=== PATIENT | male | born 1970 | race Caucasian/White ===

== ENCOUNTER → 2017-10-23 10:45 | Outpatient (REF) | payer BC, SELFPAY ==
[2017-10-23 12:44] LABS: Anion Gap 8.9 mmol/L (3-11); BUN 15 mg/dL (7-18); CO2 28.1 mmol/L (21.0-32.0); CREATININE 0.97 mg/dL (0.70-1.30); Chloride 103 mmol/L (98-107); Cholesterol 209 mg/dL (50-200); Glucose 114 mg/dL (70-100); HDL Cholesterol 48 mg/dL (40-60); LDL CHOLESTEROL 145 mg/dL (<100); Potassium 3.6 mmol/L (3.5-5.1); Sodium 140 mmol/L (136-145); Triglyceride 109 mg/dL (30-150)
== END ==
LOC: NCHCN 10:45
PROVIDERS: PCP Internal Medicine; Visit Provider Internal Medicine
DX: Z00.00 Encounter for general adult medical examination without abnormal findings (principal); I10 Essential (primary) hypertension; G47.30 Sleep apnea, unspecified; E66.9 Obesity, unspecified
CPT/HCPCS: 80048; 80061; 83721

== ENCOUNTER 2019-03-14 10:38 | Outpatient (REF) | payer BC, SELFPAY ==
[2019-03-14 12:59] LABS: Anion Gap 8.9 mmol/L (3-11); BUN 17 mg/dL (7-18); CO2 30.1 mmol/L (21.0-32.0); CREATININE 0.87 mg/dL (0.70-1.30); Calcium 9.5 mg/dL (8.5-10.1); Calculated LDL 151 mg/dL; Chloride 102 mmol/L (98-107); Cholesterol 225 mg/dL (<200); Glucose 115 mg/dL (74-106); HDL Cholesterol 44 mg/dL (40-60); Potassium 3.5 mmol/L (3.5-5.1); Sodium 141 mmol/L (136-145); Triglyceride 152 mg/dL (<150)
[2019-03-14 13:11] LABS: Hemoglobin A1C 6.2 % (3.8-5.6)
== END 2019-03-14 10:58 ==
LOC: NCHCN 10:38
PROVIDERS: PCP Internal Medicine; Visit Provider Internal Medicine
DX: Z00.00 Encounter for general adult medical examination without abnormal findings (principal); I10 Essential (primary) hypertension; R73.9 Hyperglycemia, unspecified; E66.9 Obesity, unspecified
CPT/HCPCS: 80048; 80061; 83036

== ENCOUNTER 2020-03-08 15:03 | Outpatient (REF) | payer BC, SELFPAY ==
[2020-03-08 13:22] LABS: Anion Gap 5.3 mmol/L (3-11); BUN 15 mg/dL (7-18); CO2 31.7 mmol/L (21.0-32.0); CREATININE 1.04 mg/dL (0.70-1.30); Calcium 9.5 mg/dL (8.5-10.1); Chloride 100 mmol/L (98-107); Glucose 130 mg/dL (74-106); Sodium 137 mmol/L (136-145)
== END 2020-03-08 15:23 ==
LOC: NCHCN 15:03
PROVIDERS: PCP Internal Medicine; Visit Provider Internal Medicine
DX: Z00.00 Encounter for general adult medical examination without abnormal findings (principal); R73.03 Prediabetes; I10 Essential (primary) hypertension; E66.9 Obesity, unspecified
CPT/HCPCS: 80048; 83036

== ENCOUNTER 2021-11-28 17:46 | Outpatient (REF) | payer BC, SELFPAY ==
[2021-11-28 18:37] LABS: ALT 60 U/L (16-63); AST 38 U/L (15-37); Albumin 4.5 g/dL (3.4-5.0); Alkaline Phosphatase 75 U/L (46-116); Anion Gap 9.5 mmol/L (3-11); BUN 14 mg/dL (7-18); Bilirubin, Total 0.8 mg/dL (0.2-1.0); CO2 29.5 mmol/L (21.0-32.0); CREATININE 0.9 mg/dL (0.70-1.30); Calcium 9.7 mg/dL (8.5-10.1); Chloride 100 mmol/L (98-107); Estimated GFR 102.12 (mL/min/1.73m2); Glucose 100 mg/dL (74-106); Potassium 3.3 mmol/L (3.5-5.1); Sodium 139 mmol/L (136-145); Total Protein 7.9 g/dL (6.4-8.2)
[2021-11-28 18:39] LABS: HCT 43.8 % (40.0-50.0); HGB 15.3 g/dL (13.5-17.5); MCH 31.2 pg (27.0-33.0); MCHC 34.9 % (32.0-36.0); MCV 89 fL (80-95); MPV 10.9 fL (8.0-11.0); Platelet Count 179 10^3/uL (130-400); RDW 12.2 % (11.8-14.1); WBC 6.96 10^3/uL (4.4-10.8)
[2021-11-28 19:12] LABS: Hemoglobin A1C 6.1 % (<5.7)
== END 2021-11-28 17:47 | disposition home or self-care (01) ==
LOC: NCHCN 17:46
PROVIDERS: PCP Internal Medicine; Visit Provider Family Medicine
DX: I10 Essential (primary) hypertension (principal); R73.03 Prediabetes; E66.9 Obesity, unspecified
CPT/HCPCS: 80053; 85027; 83036

== ENCOUNTER 2022-06-08 09:08 | Outpatient (REF) | payer BC, SELFPAY ==
[2022-06-08 14:46] LABS: ALT 64 U/L (16-63); AST 40 U/L (15-37); Albumin 4.4 g/dL (3.4-5.0); Alkaline Phosphatase 75 U/L (46-116); Anion Gap 6.3 mmol/L (3-11); BUN 17 mg/dL (7-18); Bilirubin, Total 0.7 mg/dL (0.2-1.0); CO2 32.7 mmol/L (21.0-32.0); Calcium 9.8 mg/dL (8.5-10.1); Calculated LDL 148 mg/dL (<100); Chloride 100 mmol/L (98-107); Cholesterol 237 mg/dL (<200); Estimated GFR 89.44 (mL/min/1.73m2); Glucose 117 mg/dL (74-106); HDL Cholesterol 50 mg/dL (40-60); Potassium 3.9 mmol/L (3.5-5.1); Sodium 139 mmol/L (136-145); Total Protein 7.6 g/dL (6.4-8.2); Triglyceride 197 mg/dL (<150)
[2022-06-08 14:50] LABS: Hemoglobin A1C 6.3 % (<5.7)
== END 2022-06-08 09:09 | disposition home or self-care (01) ==
LOC: NCHCN 09:08
PROVIDERS: PCP Internal Medicine; Visit Provider Family Medicine
DX: Z00.00 Encounter for general adult medical examination without abnormal findings (principal); E78.5 Hyperlipidemia, unspecified; I10 Essential (primary) hypertension; R73.03 Prediabetes
CPT/HCPCS: 80053; 80061; 83036

== ENCOUNTER 2022-10-13 07:05 | Day surgery (SDC) | payer BC, SELFPAY ==
--- NOTE | 2022-10-12 21:30 | W.COLOREPORT ---
Date of service: 10/13/22 Time of Service: 09:07 Colonoscopy Report Date of procedure: 10/13/22 Pre-op diagnosis general: CRC screening Post-op diagnosis procedure note: other (Polyps and lipoma) Surgeon: Tiffanie Alejandre Anesthesia Type: General LMA/ETT Estimated blood loss (mL): 1 Pathology: none sent Complications: None Disposition: same day Prep: Miralax/Dulcolax Retraction Time: 21 Procedure Description: After informed consent was obtained the patient was taken to the procedure room and placed in a left decubitous position. Monitors were applied and a time out was done. The patients name, date of , procedure, allergies to medications and metal in their body was reviewed. The patient was then sedated. Once sedated and comfortable a rectal exam was done. External exam was normal. Internal exam revealed a normal sphincter tone and no palpable masses. The prostate normal. The scope was then introduced and retrofelexed. No internal hemorrhoids were identified. The scope was then advanced to the cecum without difficulty. The TI and appendiceal orifice were identified. The prep was BBPS 3 in all segments for a total of 9. The scope was then slowly retracted over minutes back into the rectum. Polyps: he had x2 polyps at 70 cm. 1 was a flat 5 mm polyp that is removed with cold biting forcep. The other is a flat 0.75 cm polyp that is removed with a cold snare. All specimen is retrieved and no bleeding is noted. There is no diverticula noticed. He does have what appears to be a large lipoma at 20 cm. It does have a wide broad base. This examined under NBI and has a normal vascular pattern. Multiple biopsies are taken. It is not removed.. The scope was removed and the patient was woken up and taken back to Same day surgery in stable condition. The patient tolerated the procedure well and there were no immediate complications. Follow up: The patient should follow up path pending, unless they develop changes in bowel habits or other new gastrointestinal complaints.
--- NOTE | 2022-10-12 21:34 | PDOC.DSDIS_ITS ---
Date of service: 10/13/22 Time of Service: 09:11 Discharge Plan Disposition Patient Disposition: Home Condition: Good Discharge Details Reason For Visit: colon scope Attending Provider: Tiffanie Alejandre Primary Care Provider: Wilder Nieves Home Meds and New Rx's Prescriptions: Continued chlorthalidone 25 mg tablet 25 mg PO DAILY lisinopril 10 mg tablet 10 mg PO DAILY Discontinued bisacodyl [Dulcolax (bisacodyl)] 5 mg tablet,delayed release (DR/EC) 5 mg PO ONCE Qty: 4 0RF Rx Instructions: Take per colonoscopy instructions provided by ordering providers office polyethylene glycol 3350 17 gram/dose powder 17 g PO ONCE Qty: 238 0RF Rx Instructions: Take per colonoscopy instructions provided by ordering providers office Discharge Instructions Additional Instructions: DSU Colonoscopy Post- Op Instructions Instructions for Everyone who is given Anesthesia: For your safety, please do the following for the next twenty-four (24) hours: *Do Not operate a motor vehicle (car, truck, motorcycle, etc.) *Do Not drink alcoholic beverages or use any recreational drugs for the first 24 hours or while taking pain medications. The medications in your body may have a reaction that can be dangerous. *Do Not make any important decisions or sign any important papers. Findings: polyps x3 Follow up: My office will send you a letter in 2 to 3 weeks time with the results of the biopsies and when we want you to repeat the colonoscopy. 1. No lifting over 20 pounds or strenuous activity for the first 24 hours after your procedure. After 24 hours there are no restrictions on your activity but you may feel fatigued for a few days. 2. After you arrive home you may have a light meal and return to your normal diet as you can tolerate it without feeling sick to your stomach. 3. You may have a bloated, gaseous feeling in your belly (abdomen) after a colonoscopy. Passing gas and belching will help. Walking or lying down on your left side with your knees flexed may relieve the discomfort. Call the office at [phone] (Office) or [phone] (Hospital) right away if you notice any of the following: a.Vomiting of blood or ?coffee ground stools?. b.Rectal bleeding 1Tbsp, blood clots or continuous bleeding. c.Severe belly (abdominal) pain. d.A hard distended belly (abdomen) and an inability to pass gas. 4. Please don?t expect to have a normal BM (bowel movement) for 2-3 days after your procedure. 5. If there are questions regarding the findings of your procedure, please contact your doctor 6. If you are unable to contact your doctor with a problem, contact the hospital at [phone]. 7. Continue all your regular medications unless directed otherwise. I understand the above instructions and have no questions. Signature of Patient or Adult Escort Name of Responsible Adult Escort Signature of Nurse Date/Time Activity:: see above Diet:: see above Discharge Orders Discharge Orders: Discharge Order (Routine); Ordered 10/13/22 Ordered By: Tiffanie Alejandre DS: Diagnosis Discharge Diagnosis (1) Prediabetes: Status: Acute (2) Hypertension: Status: Chronic (3) Lipoma: Status: Acute (4) Hyperlipidemia: Status: Acute (5) Obesity: (6) Sleep apnea: (7) Screening for malignant neoplasm of colon performed: Status: Acute Asessment and Plan: The patient is seen and examined after their colonoscopy.? The patient has been able to pass gas.? They are not having abdominal pain.? They have been able to tolerate liquids and a snack.? They do not have any nausea or vomiting.? They are not having any chest pain or shortness of breath.They are not having any rectal bleeding. Their vital signs have been stable-see nursing notes. ? We discussed findings during their colonoscopy, and any biopsies that were done/polyps that were removed. The patient will be sent a letter with any biopsy results, and when to repeat the colonoscopy.-see discharge instructions. ? Patient was given explicit instructions to follow-up regarding colonoscopy-refer to discharge instructions.? We reviewed resumption of medications. Patient verbalized understanding and discharged in stable and satisfactory condition- See nursing notes.
[2022-10-13 07:15] VITALS: BP 154/102; PULSE 75; RESP 19; TEMP 36.4; O2SAT 96
[2022-10-13] MEDS: Lactated Ringers 1,000 ML 80 ML IV (07:28)
--- NOTE | 2022-10-13 07:57 | W.ANESPRE ---
General Info Date of Service Date Performed: 10/13/22 Height: 6 ft Weight: 118.8 kg Body Mass Index (BMI): 35.5 Surgical Procedure: Operation Date: 10/13/22 08:20 Proposed Procedure Side Surgeon p Colonoscopy Tiffanie Alejandre DO Actual Procedure Side Surgeon p Colonoscopy Not Applicable Tiffanie Alejandre, Meds Allergies and Home Medications Allergies Allergy/AdvReac Type Severity Reaction Status Date / Time No Known Allergies Allergy Verified 10/13/22 07:20 Home Medication Medication Instructions Recorded chlorthalidone 25 mg tablet 25 mg PO DAILY 01/26/22 lisinopril 10 mg tablet 10 mg PO DAILY 01/26/22 Current Visit Medications: Current Medications Generic Name Dose Route Start Last Admin Trade Name Freq PRN Reason Stop Dose Admin Hyoscyamine Sulfate 0.125 mg 10/13/22 08:14 Hyoscyamine 0.125 Mg Sl/Oral/Chew SL 11/12/22 08:13 DIRECTED PRN Ringer's Solution 1,000 mls @ 80 mls/hr 10/13/22 06:00 10/13/22 07:28 IV 10/13/22 23:59 80 mls/hr INFUSION JONAS Administration IV Miscellaneous Supplies 1 each 10/13/22 06:00 Iv Access IV 10/13/22 23:59 DIRECTED JONAS Ondansetron HCl 4 mg 10/13/22 08:14 Ondansetron 4 Mg/2 Ml Vial IVP 11/12/22 08:13 Q4H PRN PRN Nausea / Vomiting Sodium Chloride 0 ml 10/13/22 06:00 Normal Saline Flush 10 Ml Syr IV 10/13/22 23:59 PRN PRN Sodium Chloride 0 ml 10/13/22 06:00 Normal Saline 10 Ml Vial IJ 10/13/22 23:59 DIRECTED PRN Sterile Water 0 ml 10/13/22 06:00 Water,Injection,Sterile 10 Ml Vial IJ 10/13/22 23:59 DIRECTED PRN PFSH Active Problems Active Problems: Problem Status Onset Code Screening for malignant neoplasm of colon performed Z12.11 Prediabetes R73.03 Hypertension I10 Lipoma D17.9 Hyperlipidemia E78.5 Medical History Medical History Obesity Sleep apnea Tobacco Smoking/Tobacco Use Status: Never Alcohol Alcohol Intake: current Alcohol intake frequency: 0-2 drinks per day Alcohol type: beer Substance Use Substance use: Never Substance use type: does not use Vital Signs and Lab Results Vital Signs Most Recent Vital Signs in EMR: Most Recent Vital Signs Temp Pulse Resp BP Pulse Ox 36.4 C L 75 19 154/102 H 96 10/13/22 07:15 10/13/22 07:15 10/13/22 07:15 10/13/22 07:15 10/13/22 07:15 Lab Results Blood Type / Crossmatch: No Data to Display Complete Blood Count: No Data to Display Complete Metabolic Panel: No Data to Display Liver Function Panel: No Data to Display Coagulation Panel: No Data to Display Cardiac Panel: No Data to Display Arterial Blood Gas: No Data to Display Venous Blood Gas: No Data to Display Pancreas Panel: No Data to Display Thyroid Panel: No Data to Display Infectious Disease: No Data to Display Blood Cultures: No Data to Display Toxicology Panel: No Data to Display Anesthesia Assessment and Plan Anesthesia History Personal History: No History of General Anesthesia Family History: No Family History of Anesthesia Complications Exercise Tolerance Exercise Tolerance: Metabolic Equivalents>4 Pertinent Negatives Pertinent Negatives: No Symptoms of GERD Cardiac & Pulmonary Exam Cardiac Exam: Normal S1/S2 Heart Sounds Pulmonary Exam: Clear Bilateral Breath Sounds Implantable Cardiac Device Does patient have a Pacemaker or an ICD?: No Airway Exam Known Difficult Airway: No Mallampati Class: 2 Mouth Opening: Normal (> 3cm) Thyromental Distance: Greater than 3 cm Neck Range of Motion: Full ROM Neck Circumference: Normal Teeth Condition: Normal Dentition ASA Classification ASA Score: ASA 2 Emergency Case?: No NPO Status NPO Status: NPO Clears >2 hours, Solids >8 hours Anesthesia Plan Resuscitation Status: Full Code Anesthesia Technique: General Anesthesia Airway Planned: Natural Airway Monitors Used: Standard Monitors
[2022-10-13 07:58] VITALS: BMI 35.5
--- NOTE | 2022-10-13 08:22 | BOWEL_PTH ---
PATIENT: Stanislaw Brooks LOC: [facility] U#:[id number] AGE/SX: 52/M ROOM: RE10/13/[address]: Tiffanie Alejandre : 1970 BED: DIS: 10/13/2022 SPEC #: [id number] RECD: 10/13/22 17:44 STATUS: KARAN RE #: [id number] CARMEN: 10/13/22 08:[address]: Tiffanie Alejandre DEPT: Surgical Specimen RECD BY: Maryjo Morillo ENTERED: 10/13/22 17:45 SP TYPE: Bowel OTHR DR: Wilder Nieves Tissues: 1 - BIOPSY BOWEL 2 - BIOPSY BOWEL Procedures: GROSS AND MICRO LEVEL 4 Comments: [id number]
[2022-10-13 08:45] VITALS: BP 111/83; PULSE 76; RESP 18; TEMP 36.1; O2SAT 92
--- NOTE | 2022-10-13 08:50 | W.ANESPOSTOP ---
Postoperative Evaluation Date, Time and Location Date Performed: 10/13/22 Time Performed: 08:50 Patient Location: Day Surgery Unit Vital Signs Most Recent Imported Vital Signs: Most Recent Vital Signs Temp Pulse Resp BP Pulse Ox 36.4 C L 75 19 154/102 H 96 10/13/22 07:15 10/13/22 07:15 10/13/22 07:15 10/13/22 07:15 10/13/22 07:15 Pain Score Most Recent Pain Score: Most Recent Pain Score Pain Level 0 10/13/22 07:15 Assessment Mental Status: Arousable with meaningful communication Airway and Respiratory Function: Patent airway with normal (patient baseline) respiratory exam Cardiovascular Function: Hemodynamically Stable Hydration Status: Adequately Hydrated Nausea & Vomiting: No Nausea or Vomiting Pain: Pt. Denies Any Pain Peripheral Nerve Block: Patient did not receive a nerve block
[2022-10-13 09:22] VITALS: BP 139/87; PULSE 66; RESP 16; TEMP 36.1; O2SAT 94
== END 2022-10-13 10:12 | disposition home or self-care (01) ==
PROVIDERS: PCP Internal Medicine; Visit Provider Surgery
PROC: 0DJD8ZZ Inspection of Lower Intestinal Tract, Via Natural or Artificial Opening Endoscopic (ICD-10-PCS; CPT 45378; principal; 2022-10-13 08:15)
DX: Z12.11 Encounter for screening for malignant neoplasm of colon; D12.4 Benign neoplasm of descending colon; D17.5 Benign lipomatous neoplasm of intra-abdominal organs
CPT/HCPCS: 45385; 45380; 88305; J2001; J2704

== ENCOUNTER 2024-05-27 12:11 | Outpatient (REF) | payer BC, SELFPAY ==
[2024-05-27 16:13] LABS: Abs Immature Grans 0.04 10^3/uL (0.0-0.06); Absolute Basophil Count 0.06 10^3/uL (0.0-0.2); Absolute Eosinophil Count 0.21 10^3/uL (0.0-0.7); Absolute Lymphocyte Count 1.58 10^3/uL (1.2-3.4); Absolute Monocyte Count 0.47 10^3/uL (0.1-0.8); Absolute Neutrophil Count 3.39 10^3/uL (1.2-6.7); Eosinophils % 3.7 %; HCT 46.2 % (40.0-50.0); HGB 15.9 g/dL (13.5-17.5); Immature Grans % 0.7 %; Lymphocytes % 27.5 %; MCHC 34.4 % (32.0-36.0); MCV 90 fL (80-95); MPV 11.1 fL (8.0-11.0); Monocytes % 8.2 %; Neutrophils % 58.9 %; Platelet Count 180 10^3/uL (130-400); RBC 5.13 10^6/uL (4.36-5.78); RDW 12.1 % (11.8-14.1); RDW-SD 40.6 fL; WBC 5.75 10^3/uL (4.4-10.8)
[2024-05-27 16:45] LABS: ALT 44 U/L (16-63); AST 30 U/L (15-37); Albumin 4.1 g/dL (3.4-5.0); Alkaline Phosphatase 96 U/L (46-116); Anion Gap 6.2 mmol/L (3-11); BUN 18 mg/dL (7-18); Bilirubin, Total 0.5 mg/dL (0.2-1.0); CO2 30.8 mmol/L (21.0-32.0); CREATININE 0.9 mg/dL (0.70-1.30); Calcium 9.8 mg/dL (8.5-10.1); Calculated LDL 140 mg/dL (<100); Chloride 104 mmol/L (98-107); Cholesterol 228 mg/dL (<200); Estimated GFR 100.24 (mL/min/1.73m2); Glucose 135 mg/dL (74-106); HDL Cholesterol 53 mg/dL (>or=40); Potassium 3.9 mmol/L (3.5-5.1); Sodium 141 mmol/L (136-145); Total Protein 7.4 g/dL (6.4-8.2); Triglyceride 177 mg/dL (<150)
[2024-05-27 16:48] LABS: Hemoglobin A1C 6.5 % (<5.7)
== END 2024-05-27 12:12 | disposition home or self-care (01) ==
LOC: NCHCN 12:11
PROVIDERS: PCP Family Medicine; Visit Provider Family Medicine
DX: I10 Essential (primary) hypertension (principal); R73.03 Prediabetes; E78.5 Hyperlipidemia, unspecified
CPT/HCPCS: 80053; 80061; 83036; 85025